=== PATIENT | female | born 1945 | race Caucasian/White ===

== ENCOUNTER → 2018-02-27 15:29 | Outpatient (CLI) | payer MEDICARE, MEDICAID, SELFPAY ==
--- NOTE | 2018-02-27 15:31 | DI.REPORT_ITS ---
SYMPTOMS/DIAGNOSIS: ACUTE ONSET LOW BACK PAIN, WORST AT L4-5 WITH HX OF OSTEOPOROSIS, ? COMPRESSION FX, M54.5 LUMBAR SPINE: AP and lateral views were performed. There is no evidence of compression fracture. There is marked narrowing of the L 4 - 5 disc. There is spondylolisthesis at this disc level. There are bilateral L 4 pars defects. IMPRESSION: Degenerative disc changes, spondylolysis and spondylolisthesis at L 4 - 5. No evidence of compression fracture.
== END ==
PROVIDERS: PCP Student in an Organized Health Care Education/Training Program; Visit Provider Family Medicine
DX: M54.5 Low back pain (principal); M43.06 Spondylolysis, lumbar region; M43.16 Spondylolisthesis, lumbar region
CPT/HCPCS: 72100

== ENCOUNTER 2018-04-04 19:04 | Outpatient (REF) | payer MEDICARE, MEDICAID, SELFPAY | END 2018-04-04 19:24 | LOC: LBN 19:04 | PROVIDERS: PCP Student in an Organized Health Care Education/Training Program; Visit Provider Student in an Organized Health Care Education/Training Program | DX: R31.29 Other microscopic hematuria (principal) | CPT/HCPCS: 87086 ==

== ENCOUNTER → 2018-04-12 09:18 | Outpatient (BNVA) | payer MEDICARE, MEDICAID, SELFPAY | PROVIDERS: Visit Provider Internal Medicine Cardiovascular Disease | DX: I51.7 Cardiomegaly (principal); I13.10 Hypertensive heart and chronic kidney disease without heart failure, with stage 1 through stage 4 chronic kidney disease, or unspecified chronic kidney disease; I08.3 Combined rheumatic disorders of mitral, aortic and tricuspid valves; I27.20 Pulmonary hypertension, unspecified; I48.2 Chronic atrial fibrillation | CPT/HCPCS: 99214 ==

== ENCOUNTER 2018-05-01 15:15 | Outpatient (REF) | payer MEDICARE, MEDICAID, SELFPAY ==
--- NOTE | 2018-05-01 15:00 | PAPFTD_PTH ---
PATIENT: KAILEE DURAN LOC: [facility] U#:[id number] AGE/SX: 73/F ROOM: RE05/01/[address]: Michelle Ward MD : [id number] BED: DIS: 05/01/2018 SPEC #: [id number] RECD: 05/01/18 17:54 STATUS: ARUNA REQ #: [id number] DOMI: 05/01/18 15:[address]: Michelle Ward DEPT: [facility] Cytology RECD BY: Aida Pace ENTERED: 05/01/18 17:55 SP TYPE: PAPFTD PAZ DR: Mary Barnhart DO Tissues: 1 - CX/ENDOCX FOR PAP SMEARS Procedures: PAP THIN PREP/[facility] Diagnostic HPV DNA PROBE Comments: [id number]
== END 2018-05-01 15:35 ==
LOC: LBN 15:15
PROVIDERS: PCP Student in an Organized Health Care Education/Training Program; Visit Provider Obstetrics & Gynecology
DX: Z12.4 Encounter for screening for malignant neoplasm of cervix (principal); Z11.51 Encounter for screening for human papillomavirus (HPV)
CPT/HCPCS: 88175; 87624

== ENCOUNTER 2018-05-28 00:20 | Outpatient (CLI) | payer MEDICARE, MEDICAID, SELFPAY ==
--- NOTE | 2018-05-28 12:52 | DI.US_ITS ---
SYMPTOM/DIAGNOSIS: POST MENOPAUSAL BLEEDING N95.0 PELVIC ULTRASOUND: Transabdominal examination was performed. The patient refused the transvaginal portion of the examination. The uterus is not adequately visualized on this transabdominal examination. The ovaries were not visualized transabdominally. No definite pelvic mass or free pelvic fluid is seen. The right kidney measures 8.4 cm long. The left kidney measures 8.2 cm long. No renal masses, calculi or obstruction is identified. IMPRESSION: Indeterminate examination. The patient refused the transvaginal portion of the examination. The uterus is incompletely visualized sonographically, transabdominally. The ovaries were not visualized transabdominally. If there is continued concern MRI may be considered in this patient.
== END 2018-05-28 00:40 ==
PROVIDERS: PCP Student in an Organized Health Care Education/Training Program; Visit Provider Obstetrics & Gynecology
DX: N95.0 Postmenopausal bleeding (principal)
CPT/HCPCS: 76856

== ENCOUNTER 2018-06-19 16:16 | Outpatient (CLI) | payer MEDICARE, MEDICAID, SELFPAY ==
[2018-06-19 16:51] LABS: HCT 42.3 % (36.0-46.0); HGB 14.3 g/dL (12.0-15.5); Mean Corp. HGB Concentration 33.8 g/dL (32.0-36.0); Mean Corpuscular Volume 97.7 fL (80-95); Mean Platelet Volume 10.4 fL (8.0-11.0); Platelet Count 229 x1000/uL (130-400); RBC 4.33 m/cumm (4.00-5.20); RBC Distribution Width 14.9 % (11.7-14.6); White Blood Cell Count 9.56 k/cumm (4.4-10.8)
[2018-06-19 19:48] LABS: Anion Gap 11.8 mmol/L (3-11); CO2 26.2 mmol/L (21.0-32.0); Chloride 102 mmol/L (98-107); Potassium 3.7 mmol/L (3.5-5.1); Sodium 140 mmol/L (136-145); TSH 3.43 uIU/mL (0.358-3.74)
== END 2018-06-19 16:36 ==
PROVIDERS: PCP Student in an Organized Health Care Education/Training Program; Visit Provider Obstetrics & Gynecology
DX: N95.0 Postmenopausal bleeding (principal); Z01.818 Encounter for other preprocedural examination
CPT/HCPCS: 36415; 80051; 85027; 86850; 86900; 86901; 84443

== ENCOUNTER 2018-06-25 09:52 | Outpatient (CLI) | payer MEDICARE, MEDICAID, SELFPAY ==
--- NOTE | 2018-06-25 10:40 | PDOC.ANES ---
Date of service: 06/25/18 Time of Service: 10:40 Anesthesia Note Report Anesthesia Note: Pt. seen in preop area for scheduled procedure 06/28/18. Given her recent Echo on 12-27-17 showing severe aortic stenosis, mod-severe aortic regurgitation, moderate MR/MS, Severe TR, and moderate pHTN with reduced EF to 45%, patinet and caregiver were advised that this elective procedure should be done [place] [facility] [place] [facility] given significant valve disease and high risk of major adverse cardiac event with our facilities limited resources for advanced cardiac therapy if needed. apartment coordinator understands and agrees and will follow up for referral with [facility]. [facility] made aware of decision and will notify Dr. Ward.
--- NOTE | 2018-06-25 10:46 | ANES_ITS ---
Date of service: 06/25/18 Time of Service: 10:40 Anesthesia Note Report Anesthesia Note: Pt. seen in preop area for scheduled procedure 06/28/18. Given her recent Echo on 12-27-17 showing severe aortic stenosis, mod-severe aortic regurgitation, moderate MR/MS, Severe TR, and moderate pHTN with reduced EF to 45%, patinet and caregiver were advised that this elective procedure should be done at a larger tertiary medical center such as [facility] [place] or [facility] given significant valve disease and high risk of major adverse cardiac event with our facilities limited resources for advanced cardiac therapy if needed. cessation systems outreach specialist understands and agrees and will follow up for referral with [facility]. [facility] made aware of decision and will notify Dr. Ward.
== END 2018-06-25 10:12 ==
PROVIDERS: PCP Student in an Organized Health Care Education/Training Program; Visit Provider Obstetrics & Gynecology
DX: N95.0 Postmenopausal bleeding (principal); Z01.818 Encounter for other preprocedural examination

== ENCOUNTER 2018-09-11 15:38 | Outpatient (CLI) | payer MEDICARE, MEDICAID, SELFPAY ==
--- NOTE | 2018-09-11 15:35 | DI.RAD_ITS ---
SYMPTOM/DIAGNOSIS: COUGH, FEVER, LT SIDED RHONCHI, PNEUMONIA, J18.9 PA AND LATERAL CHEST: Comparison is made with 02/29/16. The heart is enlarged but stable. Pulmonary vasculature appears stable. There are increased lung markings seen in the bases, particularly in the right and posteriorly. No effusion or pneumothorax is identified. IMPRESSION: 1. Cardiomegaly. 2. Increased lung markings in the bases. This may represent atelectasis or pneumonia.
== END 2018-09-11 15:58 ==
PROVIDERS: PCP Student in an Organized Health Care Education/Training Program; Visit Provider Family Medicine
DX: R05 Cough (principal); R50.9 Fever, unspecified; J98.8 Other specified respiratory disorders; I51.7 Cardiomegaly; J18.9 Pneumonia, unspecified organism
CPT/HCPCS: 71046

== ENCOUNTER 2018-09-11 16:07 | Outpatient (REF) | payer MEDICARE, MEDICAID, SELFPAY | END 2018-09-11 16:27 | LOC: LBN 16:07 | PROVIDERS: PCP Student in an Organized Health Care Education/Training Program; Visit Provider Family Medicine | DX: J18.9 Pneumonia, unspecified organism (principal) | CPT/HCPCS: 87449 ==

== ENCOUNTER → 2018-10-18 12:58 | Outpatient (BNVA) | payer MEDICARE, MEDICAID, SELFPAY | PROVIDERS: PCP Student in an Organized Health Care Education/Training Program; Visit Provider Internal Medicine Cardiovascular Disease | DX: I48.2 Chronic atrial fibrillation (principal); I12.9 Hypertensive chronic kidney disease with stage 1 through stage 4 chronic kidney disease, or unspecified chronic kidney disease; I08.3 Combined rheumatic disorders of mitral, aortic and tricuspid valves; I42.9 Cardiomyopathy, unspecified; I27.20 Pulmonary hypertension, unspecified; N18.9 Chronic kidney disease, unspecified | CPT/HCPCS: 99214 ==

== ENCOUNTER 2018-12-05 09:31 | Outpatient (CLI) | payer MEDICARE, MEDICAID, SELFPAY ==
[2018-12-05 10:32] LABS: HCT 41.8 % (36.0-46.0); HGB 13.9 g/dL (12.0-15.5); Mean Corp. HGB Concentration 33.3 g/dL (32.0-36.0); Mean Corpuscular Hemoglobin 33.2 pg (27.0-33.0); Mean Corpuscular Volume 99.8 fL (80-95); Mean Platelet Volume 10.6 fL (8.0-11.0); Platelet Count 191 x1000/uL (130-400); RBC 4.19 m/cumm (4.00-5.20); RBC Distribution Width 14.4 % (11.7-14.6); White Blood Cell Count 8.54 k/cumm (4.4-10.8)
[2018-12-05 11:08] LABS: ALT 24 U/L (12-78); AST 24 U/L (15-37); Albumin 3.6 g/dL (3.4-5.0); Alkaline Phosphatase 167 U/L (46-116); Anion Gap 10.7 mmol/L (3-11); BUN 32 mg/dL (7-18); Bilirubin, Total 0.7 mg/dL (0.2-1.0); CO2 28.3 mmol/L (21.0-32.0); CREATININE 1.27 mg/dL (0.55-1.02); Chloride 104 mmol/L (98-107); Estimated GFR 41.25 (mL/min/1.73m2); Glucose 91 mg/dL (70-100); Potassium 3.6 mmol/L (3.5-5.1); Sodium 143 mmol/L (136-145)
[2018-12-05 11:18] LABS: TSH (W/Ref FT4) 2.91 uIU/mL (0.358-3.74)
== END 2018-12-05 09:51 ==
PROVIDERS: PCP Student in an Organized Health Care Education/Training Program; Visit Provider Student in an Organized Health Care Education/Training Program
DX: D64.9 Anemia, unspecified (principal); I48.2 Chronic atrial fibrillation; I50.9 Heart failure, unspecified; E03.9 Hypothyroidism, unspecified; I10 Essential (primary) hypertension; N18.3 Chronic kidney disease, stage 3 (moderate)
CPT/HCPCS: 36415; 80053; 85027; 84443

== ENCOUNTER 2018-12-19 00:37 | Outpatient (CLI) | payer MEDICARE, MEDICAID, SELFPAY ==
--- NOTE | 2018-12-19 13:55 | MERGE_ITS ---
*[facility]* *[facility]* [address] [place] [address] Date of study: 12/19/2018 Transthoracic Echocardiography M-mode, complete 2D, complete spectral Doppler, and color Doppler *STUDY CONCLUSIONS* Impressions: The patient was in atrial fibrillation throughout study. This rhythm can interfere with accurate global and segmental wall motion analysis. Compared to the prior study, there has been no significant interval change. Summary: 1. Left ventricle: The cavity size was normal. Wall thickness was increased in a pattern of mild LVH. Systolic function was mildly reduced. The estimated ejection fraction was 45-50%. Wall motion was normal; there were no regional wall motion abnormalities. 2. Ventricular septum: The contour showed diastolic flattening and systolic flattening. These changes are consistent with RV volume and RV pressure overload. 3. Aortic valve: Moderate calcification. Valve mobility was restricted. Transvalvular velocity was abnormal, due to low cardiac output. There was severe stenosis. There was mild to moderate regurgitation. Peak velocity (S): 3.6m/sec. Mean gradient (S): 27mm Hg. Valve area (VTI): 0.7cm^2. 4. Mitral valve: Moderate thickening and calcification. Mobility was restricted. Prolapse, involving the anterior leaflet. The findings are consistent with stenosis. There was moderate regurgitation directed posteriorly. 5. Left atrium: The atrium was massively dilated. 6. Right ventricle: The cavity size was normal. Wall thickness was normal. Systolic function was normal. 7. Right atrium: The atrium was severely dilated. 8. Tricuspid valve: Leaflet thickening. There was moderate-severe regurgitation. 9. Pulmonary arteries: Pulmonary systolic pressure was severely increased, in the range of 65mm Hg to 75mm Hg. *PATIENT PRESENTATION* Height: 162.6cm ((64in) ) S/D Pressure: 126 / 71 Weight: 86.2kg ((189.6lb) ) BSA: 2.01m^2 Test start time: 02:10 PM. Test stop time: 03:10 PM. PERFORMING Unknown PERFORMING [facility] TROMMEL TENDER RT Stephen (Chaz)(CT), [facility] ORDERING Mary Barnhart REFERRING Mary Barnhart *PROCEDURE DATA* Procedure information: The patient was identified by two identifiers. This study was interpreted by [facility]. Pertinent images and digital data are archived for permanent storage and are available for subsequent review. Comparison was made to the study of 12/27/2017. Study status: Routine. Transthoracic echocardiography. M-mode, complete 2D, complete spectral Doppler, and color Doppler. A Transthoracic Echocardiogram was performed. Scanning was performed from the parasternal, apical, subcostal, and suprasternal notch acoustic windows. Images were obtained using an [id number] cardiac ultrasound machine. Study completion: The patient tolerated the procedure well. There were no complications. History: PMH: Chronic afib, HF, SOB, PND, CHF, . I48.2, i35.0. *CARDIAC ANATOMY* Left ventricle: The cavity size was normal. Wall thickness was increased in a pattern of mild LVH. Systolic function was mildly reduced. The estimated ejection fraction was 45-50%. Wall motion was normal; there were no regional wall motion abnormalities. The study was not technically sufficient to allow evaluation of LV diastolic dysfunction due to atrial fibrillation. Aortic valve: Trileaflet; normal thickness leaflets. Moderate calcification. Valve mobility was restricted. Doppler: Transvalvular velocity was abnormal, due to low cardiac output. There was severe stenosis. There was mild to moderate regurgitation. VTI ratio of LVOT to aortic valve: 0.27. Valve area (VTI): 0.7cm^2. Indexed valve area (VTI): 0.4cm^2/m^2. Peak velocity ratio of LVOT to aortic valve: 0.28. Valve area (Vmax): 0.8cm^2. Indexed valve area (Vmax): 0.4cm^2/m^2. Mean velocity ratio of LVOT to aortic valve: 0.31. Valve area (Vmean): 0.9cm^2. Indexed valve area (Vmean): 0.4cm^2/m^2. Mean gradient (S): 27mm Hg. Peak gradient (S): 50.5mm Hg. Aorta: Aortic root: The aortic root was normal in size. Ascending aorta: The ascending aorta was normal in size. Mitral valve: Moderate thickening and calcification. Mobility was restricted. Prolapse, involving the anterior leaflet. Doppler: The findings are consistent with stenosis. There was moderate regurgitation directed posteriorly. Valve area by pressure half-time: 0.9cm^2. Indexed valve area by pressure half-time: 0.4cm^2/m^2. Peak gradient (D): 22.4mm Hg. Left atrium: The atrium was massively dilated. Right ventricle: The cavity size was normal. Wall thickness was normal. Systolic function was normal. Ventricular septum: The contour showed diastolic flattening and systolic flattening. These changes are consistent with RV volume and RV pressure overload. Pulmonic valve: The pulmonary valve appears to be grossly normal. Doppler: Transvalvular velocity was within the normal range. There was no evidence for stenosis. There was mild regurgitation. Peak gradient (S): 2.7mm Hg. Tricuspid valve: Leaflet thickening. Doppler: Transvalvular velocity was within the normal range. There was no evidence for stenosis. There was moderate-severe regurgitation. Peak gradient (D): 63.1mm Hg. Pulmonary artery: Pulmonary systolic pressure was severely increased, in the range of 65mm Hg to 75mm Hg. Right atrium: The atrium was severely dilated. Pericardium: There was no pericardial effusion. Systemic veins: Inferior vena cava: Well visualized. The vessel was patent and dilated. The respirophasic diameter changes were in the normal range (greater than or equal to 50%). Baseline ECG: Atrial fibrillation. Measurements Left ventricle Value 12/27/2017 Reference LV ID, ED, PLAX 4.6 cm 4.4 3.5 - 6.0 LV ID, ES, PLAX 3.5 cm 3.6 2.1 - 4.0 LV PW thickness, ED, PLAX 0.8 cm 0.9 LV end-diastolic volume, 102 ml 94 1-p A2C LV ejection fraction, 1-p 50 % 44 A2C LV end-diastolic volume, 71 ml 61 1-p A4C LV ejection fraction, 1-p 49 % 43 A4C LV e', lateral 0.067 m/sec LV E/e', lateral 36 LV e', medial 0.054 m/sec LV E/e', medial 44 LV e', average 0.06 m/sec LV E/e', average 39 Ventricular septum Value 12/27/2017 Reference IVS thickness, ED, PLAX 1.1 cm 1.2 LVOT Value 12/27/2017 Reference LVOT ID, A-P 1.9 cm 1.8 LVOT area 2.8 cm^2 2.5 LVOT peak velocity, S 0.99 m/sec 0.73 LVOT mean velocity, S 0.76 m/sec 0.52 LVOT VTI, S 24.0 cm 10.1 LVOT peak gradient, S 3.9 mm Hg 2.1 LVOT mean gradient, S 2.5 mm Hg 1.2 Stroke volume (SV), LVOT 66 ml 26 DP Stroke index (SV/bsa), 33 ml/m^2 13 LVOT DP Aortic valve Value 12/27/2017 Reference Aortic valve peak 3.6 m/sec 2.5 velocity, S Aortic valve mean 2.43 m/sec 1.76 velocity, S Aortic valve VTI, S 89.0 cm 42.5 Aortic mean gradient, S 27 mm Hg 14.2 Aortic peak gradient, S 50.5 mm Hg 25.7 VTI ratio, LVOT/AV 0.27 0.24 Aortic valve area, VTI 0.7 cm^2 0.6 Velocity ratio, peak, 0.28 0.29 LVOT/AV Aortic valve area, peak 0.8 cm^2 0.7 velocity Velocity ratio, mean, 0.31 0.29 LVOT/AV Aortic valve area, mean 0.9 cm^2 0.7 velocity Aortic valve area/bsa, 0.4 cm^2/m^2 0.4 mean velocity Aortic regurg deceleration 193 cm/s^2 394 Aortic regurg pressure 600 ms 324 half-time Aorta Value 12/27/2017 Reference Aortic root ID, ED 2.9 cm 2.8 Ascending aorta ID, A-P, S 3.4 cm 3.0 Left atrium Value 12/27/2017 Reference LA ID, A-P, ES 6.8 cm 6.7 LA ID/bsa, A-P (H) 3.4 cm/m^2 3.4 <=2.2 LA area, ES, A4C (H) 47.8 cm^2 42.9 8.8 - 23.4 LA area, ES, A2C 46 cm^2 42 LA volume/bsa, ES, 1-p A4C 114 ml/m^2 95 LA volume, ES, 2-p 206 ml 170 LA volume/bsa, ES, 2-p 103 ml/m^2 85 LA/aortic root ratio 2.38 2.43 Mitral valve Value 12/27/2017 Reference Mitral E-wave peak 2.37 m/sec 2.88 velocity Mitral deceleration time (H) 859 ms 406 150 - 230 Mitral pressure half-time 249 ms 118 Mitral peak gradient, D 22.4 mm Hg 33.3 Mitral valve area, PHT, DP 0.9 cm^2 1.9 Tricuspid valve Value 12/27/2017 Reference Tricuspid E-wave peak 3.97 m/sec velocity Tricuspid peak gradient, D 63.1 mm Hg Tricuspid regurg peak 4.7 m/sec 5 velocity Tricuspid peak RV-RA 88 mm Hg 99.1 gradient Right atrium Value 12/27/2017 Reference RA area, ES, A4C (H) 31.4 cm^2 24.1 8.3 - 19.5 Pulmonic valve Value 12/27/2017 Reference Pulmonic peak gradient, S 2.7 mm Hg Legend: (L) and (H) dionisio values outside specified reference range. I have personally reviewed the images and have reviewed and edited the reported findings. Electronically signed by Denys Antunez 12/21/2018 07:52
== END 2018-12-19 00:57 ==
PROVIDERS: PCP Student in an Organized Health Care Education/Training Program; Visit Provider Student in an Organized Health Care Education/Training Program
DX: I35.2 Nonrheumatic aortic (valve) stenosis with insufficiency (principal); I48.2 Chronic atrial fibrillation; I50.9 Heart failure, unspecified; R06.00 Dyspnea, unspecified; R06.02 Shortness of breath; I51.7 Cardiomegaly; I10 Essential (primary) hypertension
CPT/HCPCS: 93306

== ENCOUNTER → 2019-10-17 15:05 | Outpatient (BNVA) | payer MEDICARE, MEDICAID, SELFPAY | PROVIDERS: PCP Student in an Organized Health Care Education/Training Program; Referring Provider Student in an Organized Health Care Education/Training Program; Visit Provider Internal Medicine Cardiovascular Disease | DX: I08.0 Rheumatic disorders of both mitral and aortic valves (principal); I43 Cardiomyopathy in diseases classified elsewhere | CPT/HCPCS: 99212; 99441 ==